=== PATIENT | female | born 1980 | race Caucasian/White ===

== ENCOUNTER 2018-10-14 13:28 | Emergency (ER) | payer MEDICAID ==
[~2018-10-14] VITALS: Ht 162.6 cm; Wt 82.7 kg
[2018-10-14 13:52] VITALS: BP 101/73
[2018-10-14] MEDS ORDERED: CEPH-572 PO (15:41)
== END 2018-10-14 15:54 | disposition home or self-care (01) ==
LOC: ER 13:29
DX: S61.211A Laceration without foreign body of left index finger without damage to nail, initial encounter (principal); Z88.8 Allergy status to other drugs, medicaments and biological substances; W45.8XXA Other foreign body or object entering through skin, initial encounter; Y93.89 Activity, other specified; Y92.89 Other specified places as the place of occurrence of the external cause; Y99.8 Other external cause status
CPT/HCPCS: 12001; 99283

== ENCOUNTER 2019-02-22 12:23 | Outpatient (CLI) | payer MEDICAID | END 2019-02-22 23:59 | disposition home or self-care (01) | LOC: VAS 12:23 | PROVIDERS: ATTEND Student in an Organized Health Care Education/Training Program | DX: M71.22 Synovial cyst of popliteal space [Baker], left knee (principal); F17.200 Nicotine dependence, unspecified, uncomplicated | CPT/HCPCS: 93971 ==

== ENCOUNTER 2020-10-07 08:17 | Outpatient (CLI) | payer MEDICAID ==
[~2020-10-07 08:17] MED LIST: BARIUM SULFATE 700 MG TABLET PO ONE; barium sulfate 450ml oral suspension ONE
== END 2020-10-07 23:59 | disposition home or self-care (01) ==
LOC: RAD 08:17
PROVIDERS: ATTEND Nurse Practitioner Family
DX: K44.9 Diaphragmatic hernia without obstruction or gangrene (principal)
CPT/HCPCS: 74220